=== PATIENT | female | born 1985 | race Hispanic/Latino ===

== ENCOUNTER → 2020-05-21 | Outpatient (CLI) | payer BC | END | disposition home or self-care (01) | LOC: CANPRECLI → RAH 08:44 | PROVIDERS: ATTEND Internal Medicine Gastroenterology | DX: R11.0 Nausea (principal); R10.10 Upper abdominal pain, unspecified; R14.0 Abdominal distension (gaseous); R14.2 Eructation; Z98.84 Bariatric surgery status | CPT/HCPCS: 74240 ==